=== PATIENT | female | born 1990 | race Asian ===

== ENCOUNTER 2020-08-22 08:28 | Outpatient (CLI) | payer OTHER | END 2020-08-22 20:50 | disposition home or self-care (01) | LOC: SRD 08:28 | PROVIDERS: ATTEND Specialist | DX: N97.9 Female infertility, unspecified (principal); N83.201 Unspecified ovarian cyst, right side | CPT/HCPCS: 58340; 74740; C1751; Q9967 ==

== ENCOUNTER 2022-12-16 06:00 | Inpatient (IN) | payer OTHER ==
[2022-12-11 09:03] LABS: BASOPHILS # (AUTO) 0.1 K/uL (0.0-0.2); BASOPHILS % (AUTO) 1.2 % (0.0-2.0); EOSINOPHILS # (AUTO) 0.1 K/uL (0.0-0.4); EOSINOPHILS % (AUTO) 1.2 % (0.0-4.0); HEMATOCRIT 39.9 % (36-48); HEMOGLOBIN 13.4 g/dL (12.0-16.0); LYMPHOCYTES # (AUTO) 1.8 K/uL (1.0-5.5); LYMPHOCYTES % (AUTO) 25.7 % (20.5-51.5); MEAN CORPUSCULAR HEMOGLOBIN 30 pg (27-31); MEAN CORPUSCULAR HGB CONC 34 % (32-36); MEAN CORPUSCULAR VOLUME 89 fL (79.0-98.0); MONOCYTES # (AUTO) 0.4 K/uL (0.0-1.0); MONOCYTES % (AUTO) 5.3 % (1.7-9.3); NEUTROPHILS # (AUTO) 4.8 K/uL (1.8-7.7); NEUTROPHILS % (AUTO) 66.6 % (40.0-70.0); PLATELET COUNT (AUTO) 395 K/uL (130-430); RED BLOOD CELL COUNT(AUTO) 4.49 MIL/uL (4.2-6.2); WHITE BLOOD COUNT (AUTO) 7.2 K/uL (4.8-10.8)
[2022-12-11 09:05] LABS: BILIRUBIN,URINE NEGATIVE (NEGATIVE); BLOOD, URINE NEGATIVE (NEGATIVE); CLARITY/URINE CLEAR (CLEAR); COLOR,URINE YELLOW (YELLOW); GLUCOSE,URINE NEGATIVE (NEGATIVE); KETONES,URINE NEGATIVE (NEGATIVE); LEUKOCYTE ESTERASE ,URINE NEGATIVE (NEGATIVE); NITRITE, URINE NEGATIVE (NEGATIVE); PROTEIN URINE NEGATIVE (NEGATIVE); UROBILINOGEN,URINE 0.2 (0.2-1.0)
[~2022-12-16] VITALS: Ht 157.5 cm; Wt 83.0 kg
[2022-12-16 06:21] LABS: HCG,QUAL RESULT NEGATIVE (NEGATIVE)
[2022-12-16] MEDS ORDERED: NS IRRIG SOLN 1000 ML IR ONE (07:44)
[2022-12-16] MEDS ORDERED: ceFAZolin SODIUM 2 GM VIAL ONE (07:44)
[2022-12-16] MEDS ORDERED: MIDAZOLAM HCL 2 MG/2 ML VIAL (VERSED) ONE (07:44)
[2022-12-16] MEDS ORDERED: fentaNYL CITRATE/PF 100 MCG/2 ML AMP ONE (07:44)
[2022-12-16] MEDS ORDERED: LR 1,000 ML IV.SOLN IV ONE (07:44)
[2022-12-16] MEDS ORDERED: SUGAMMADEX SODIUM 200 MG/2 ML VIAL IV ONE (07:44)
[2022-12-16] MEDS ORDERED: WATER FOR IRRIGATION,STERILE 1,000 ML IRRIG.SOLN IR ONE (07:44)
[2022-12-16] MEDS ORDERED: PROPOFOL 200MG/ 20ML VIAL (DIPRIVAN) IV ONE (07:44)
[2022-12-16] MEDS ORDERED: ROCURONIUM BROMIDE 10 MG/ML (ZEMURON) ONE (07:44)
[2022-12-16] MEDS ORDERED: BUPIVACAINE /PF 0.5% 30 ML VIAL ONE (07:44)
[2022-12-16] MEDS ORDERED: ONDANSETRON HCL 4 MG/2 ML VIAL ONE (07:44)
[2022-12-16] MEDS ORDERED: DESFLURANE 15 MIN GAS INH ONE (07:44)
[2022-12-16] MEDS ORDERED: KETOROLAC TROMETHAMINE 30 MG VIAL ONE (07:44)
[2022-12-16] MEDS ORDERED: DEXAMETHASONE SOD PHOSPHATE 4 MG/ML VIAL ONE (07:44)
[2022-12-16] MEDS ORDERED: MEPERIDINE HCL/PF 25 MG/ML DISP.SYRIN IVP PRN (08:45)
[2022-12-16] MEDS ORDERED: hydrALAZINE HCL 20 MG/ML VIAL IVP PRN (08:45)
[2022-12-16] MEDS ORDERED: HYDROmorphone 1 MG/ML INJ. CARTRIDGE IVP PRN ×2 (08:45)
[2022-12-16] MEDS ORDERED: LR 1,000 ML IV SCH (08:45)
[2022-12-16] MEDS ORDERED: METOCLOPRAMIDE HCL 10 MG/2 ML VIAL IVP PRN (08:45)
[2022-12-16] MEDS ORDERED: MIDAZOLAM HCL 2 MG/2 ML VIAL (VERSED) IVP PRN (08:45)
[2022-12-16] MEDS ORDERED: LABETALOL 100 MG/ 20ML VIAL IVP PRN (08:45)
[2022-12-16] MEDS ORDERED: ACETAMINOPHEN I.V. 1000 MG 100 ML IV ONE (08:53)
[2022-12-16 09:47] VITALS: BP_SYST 108
[2022-12-16] MEDS: HYDROmorphone 2 MG/ML VIAL ONE ×4 (09:53→10:08)
[2022-12-16] MEDS: SIMETHICONE 80 MG TAB.CHEW PO SCH ×3 (13:28→21:25)
[2022-12-16] MEDS: ceFAZolin SODIUM 1 GM in D5W 100 ML IV SCH ×2 (14:04→21:25)
[2022-12-16] MEDS ORDERED: KETOROLAC TROMETHAMINE 30 MG VIAL IVP SCH (18:00)
[2022-12-16] MEDS: SENNOSIDES/DOCUSATE SODIUM 1 TAB TABLET(SENOKOT-S) PO SCH (21:25)
[2022-12-16] MEDS: OXYCODONE/ACETAMINOPHEN 5-325 TABLET PO PRN (22:51)
[2022-12-17] MEDS ORDERED: KETOROLAC TROMETHAMINE 30 MG VIAL IVP PRN
[2022-12-17] MEDS: LR 1,000 ML IV SCH ×2 (03:58→11:47)
[2022-12-17] MEDS: ceFAZolin SODIUM 1 GM in D5W 100 ML IV SCH ×2 (06:13→14:00)
[2022-12-17] MEDS: SIMETHICONE 80 MG TAB.CHEW PO SCH ×3 (08:46→18:30)
[2022-12-17] MEDS: OXYCODONE/ACETAMINOPHEN 5-325 TABLET PO PRN ×3 (09:12→22:07)
[2022-12-17] MEDS: SENNOSIDES/DOCUSATE SODIUM 1 TAB TABLET(SENOKOT-S) PO SCH (21:10)
[2022-12-18] MEDS: SIMETHICONE 80 MG TAB.CHEW PO SCH ×4 (06:42→17:29)
[2022-12-18] MEDS: OXYCODONE/ACETAMINOPHEN 5-325 TABLET PO PRN ×3 (06:43→16:06)
[2022-12-18] MEDS: IBUPROFEN 600 MG TABLET PO SCH ×2 (12:28→18:07)
== END 2022-12-18 19:15 | disposition home or self-care (01) | DRG 743 ==
LOC: SMU 06:00 → EDSTATUS 07:30 → SPU 12:18
PROVIDERS: ADMIT Specialist; ATTEND Specialist
PROC: 0UB00ZZ Excision of Right Ovary, Open Approach (ICD-10-PCS; 2022-12-16)
PROC: 0UJ34ZZ Inspection of Ovary, Percutaneous Endoscopic Approach (ICD-10-PCS; principal; 2022-12-16 07:54)
DX: N80.121 Deep endometriosis of right ovary (principal); N83.201 Unspecified ovarian cyst, right side; N80.9 Endometriosis, unspecified; N73.6 Female pelvic peritoneal adhesions (postinfective); N83.9 Noninflammatory disorder of ovary, fallopian tube and broad ligament, unspecified
CPT/HCPCS: 36415; 81003; 84703; 85025; 87081; 88305; 88307; J0131; J1100; J1170; J1885; J2405; J2704; J3010; J3465; J3490; J7060; J7120